=== PATIENT | female | born 1950 | race American Indian/Alaskan Native ===

== ENCOUNTER 2016-06-28 11:33 | Day surgery (SDC) | payer MEDICARE ==
[2016-06-28] MEDS ORDERED: NEOFRIN OS ONE ×2 (11:55)
[2016-06-28] MEDS ORDERED: IOPIDINE OS ONE ×2 (11:55)
[2016-06-28] MEDS ORDERED: MYDRIACYL OS ONE ×2 (11:55)
[2016-06-28 12:23] VITALS: BP 140/90
== END 2016-06-28 12:48 | disposition home or self-care (01) ==
LOC: OR 11:33
PROVIDERS: ATTEND Specialist
DX: H26.492 Other secondary cataract, left eye (principal); I10 Essential (primary) hypertension; E78.00 Pure hypercholesterolemia, unspecified; Z86.73 Personal history of transient ischemic attack (TIA), and cerebral infarction without residual deficits; Z98.42 Cataract extraction status, left eye; G47.33 Obstructive sleep apnea (adult) (pediatric); Z91.81 History of falling